=== PATIENT | female | born 2000 | race Caucasian/White ===

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

== ENCOUNTER 2019-01-05 14:26 | Outpatient (CLI) | payer OTHER ==
[~2019-01-05] VITALS: Ht 152.4 cm; Wt 121.0 kg
[2019-01-05 14:42] VITALS: Ht 152.4 cm; Wt 121.0 kg
--- NOTE | 2019-01-05 17:12 | PN ---
Triage Information Date/Time January 05, 2019 Reason for visit: Patient was sent in for antepartum testing follow-up previous blood pressure elevation Weeks of Gestation 39 weeks and 3 days /Para 1 para 0 Diabetes: none Hypertention: none Additional information Patient had several visits to [facility] for possible PIH which were finally ruled Objective Heart Rate: 140's Heart Rate Comments Reactive Contractions: None Exam Deferred Results/Medications Imaging Results Biophysical profile score = 8/8 Disposition: Discharge Assessment/Plan Patient with normal antepartum testing Will probably induce labor on EDC MABLE CHRISTENSEN MD Jan 05, 2019 17:12
--- NOTE | 2019-01-05 17:47 | TRIAGE ---
OB Triage Datetime Report Generated by CPN: 01/05/2019 17:47 Datetime: 01/05/2019 17:00 Stage of : OB Triage Maternal Assessment Level of Consciousness: Fully Conscious DTR's/Clonus: DTRs 1+ Headache: Denies Nausea/Vomiting: Denies RUQ Epigastric Pain: Denies Labor Evaluation Frequency: NONE Monitor Mode: External Resting Tone Grayson: Relaxed Heart Rate FHR Baseline Rate: 120 Monitor Mode: External US Variability: Moderate 6-25 bpm Accelerations: 15X15 Decelerations: None Category: Category I Pain Assessment Pain Scale: 0 Pain Presence: None/Denies Pain Type: N/A Pain Goal: 3 Vaginal Exam Membrane Status: Intact Datetime: 01/05/2019 16:00 Stage of : OB Triage Maternal Assessment Level of Consciousness: Fully Conscious DTR's/Clonus: DTRs 1+ Headache: Denies Nausea/Vomiting: Denies RUQ Epigastric Pain: Denies Labor Evaluation Frequency: NONE Monitor Mode: External Resting Tone Grayson: Relaxed Heart Rate FHR Baseline Rate: 120 Monitor Mode: External US Variability: Moderate 6-25 bpm Accelerations: 15X15 Decelerations: None Category: Category I Pain Assessment Pain Scale: 0 Pain Presence: None/Denies Pain Type: N/A Pain Goal: 3 Vaginal Exam Membrane Status: Intact Datetime: 01/05/2019 15:00 Stage of : OB Triage Maternal Assessment Level of Consciousness: Fully Conscious DTR's/Clonus: DTRs 1+ Headache: Denies Nausea/Vomiting: Denies RUQ Epigastric Pain: Denies Labor Evaluation Frequency: NONE Monitor Mode: External Resting Tone Grayson: Relaxed Heart Rate FHR Baseline Rate: 120 Monitor Mode: External US Variability: Moderate 6-25 bpm Accelerations: 15X15 Decelerations: None Category: Category I Pain Assessment Pain Scale: 0 Pain Presence: None/Denies Pain Type: N/A Pain Goal: 3 Vaginal Exam Membrane Status: Intact Datetime: 01/05/2019 14:50 Maternal Assessment Level of Consciousness: Fully Conscious DTR's/Clonus: DTRs 1+ Headache: Denies Blurred Vision: No Nausea/Vomiting: Denies RUQ Epigastric Pain: Denies Facial Edema: None Labor Evaluation Frequency: NONE Monitor Mode: External Resting Tone Grayson: Relaxed Heart Rate FHR Baseline Rate: 120 Monitor Mode: External US Variability: Moderate 6-25 bpm Accelerations: 15X15 Decelerations: None Category: Category I Pain Assessment Pain Scale: 0 Pain Presence: None/Denies Pain Type: N/A Pain Goal: 3 Vaginal Exam Membrane Status: Intact Datetime: 01/05/2019 14:22 Time of Arrival: 01/05/2019 14:22 EGA: 39.3 Arrived By: Ambulatory Arrived From: Office Chief Complaint: PT CAME IN [facility] FOR NST AND BPP Movement: Present Contractions: Denies/Absent Rupture of Membranes: Denies Vaginal Discharge: Denies Recent Sexual Intercouse: Denies Abdominal Trauma: Not Applicable Additional Patient Complaints: NONE Time Provider Notified: 01/05/2019 14:30 Provider Notified: PARMINDER Initial Plan: NST AND BPP Datetime: 12/22/2018 15:00 Stage of : OB Triage Maternal Assessment Level of Consciousness: Fully Conscious Labor Evaluation Frequency: 0 Monitor Mode: External Resting Tone Grayson: Relaxed Heart Rate FHR Baseline Rate: 125 Monitor Mode: External US Variability: Moderate 6-25 bpm Accelerations: 15X15 Decelerations: None Category: Category I Pain Assessment Pain Scale: 0 Pain Goal: 3 Vaginal Exam Membrane Status: Intact Vaginal Bleeding: None Datetime: 12/22/2018 14:00 Stage of : OB Triage Maternal Assessment Level of Consciousness: Fully Conscious Labor Evaluation Frequency: 0 Monitor Mode: External Resting Tone Grayson: Relaxed Heart Rate FHR Baseline Rate: 135 Monitor Mode: External US Variability: Moderate 6-25 bpm Accelerations: 15X15 Decelerations: None Category: Category I Pain Assessment Pain Scale: 0 Pain Goal: 3 Vaginal Exam Membrane Status: Intact Vaginal Bleeding: None Datetime: 12/22/2018 13:12 Assessment Type: Triage Maternal Assessment Level of Consciousness: Fully Conscious DTR's/Clonus: DTRs 2+; No Clonus Headache: Denies Blurred Vision: No Respiratory Effort: Unlabored; Regular Rhythm; Equal Expansion Breath Sounds, Left: Clear and Equal Breath Sounds, Right: Clear and Equal Nausea/Vomiting: Denies RUQ Epigastric Pain: Denies Lower Extremities Edema: Bilateral Lower Extremities Degree: 1+ Upper Extremities Edema: Bilateral Upper Extremities Degree: 1+ Facial Edema: None Fall Risk Assessment History of Falling: (0) No Secondary Diagnosis: (0) No Ambulatory Aid: (0) Bedrest/Nurse Assist IV Therapy: (0) No Gait: (0) Normal/Bedrest/Immobile Mental Status: (0) Oriented to Own Ability Fall Score: 0 Fall Risk Score Definition: No Risk: No action required Datetime: 12/22/2018 13:10 Time of Arrival: 12/22/2018 12:37 EGA: 37.3 Arrived By: Ambulatory Arrived From: Dr. Gomez Chief Complaint: PT. SENT FROM CLINIC FOR EVAL OF HBP Movement: Present Contractions: Denies/Absent Rupture of Membranes: Denies Vaginal Bleeding: None Vaginal Discharge: Denies Recent Sexual Intercouse: Denies Abdominal Trauma: Not Applicable Patient Complaints: None Time Provider Notified: 12/22/2018 12:45 Provider Notified: PARMINDER Initial Plan: PIH PANEL/ BPP/EFM Datetime: 12/22/2018 13:06 Monitor Mode: External Monitor Mode: External US Datetime: 12/15/2018 12:24 Fall Score: 0 Fall Risk Score Definition: No Risk: No action required Datetime: 12/15/2018 12:22 EGA: 36.3 Datetime: 12/08/2018 18:04 Fall Score: 0 Fall Risk Score Definition: No Risk: No action required Datetime: 12/08/2018 18:03 EGA: 35.3
== END 2019-01-05 17:44 | disposition home or self-care (01) ==
LOC: L-D 14:26 → OBT 14:26
PROVIDERS: ATTEND Obstetrics & Gynecology
DX: O13.3 Gestational [pregnancy-induced] hypertension without significant proteinuria, third trimester (principal); Z3A.39 39 weeks gestation of pregnancy
CPT/HCPCS: 76818; Z7500; G0463

== ENCOUNTER 2019-01-08 08:47 | Inpatient (IN) | payer OTHER ==
[~2019-01-08] VITALS: Ht 152.4 cm; Wt 125.0 kg
[2019-01-08 08:51] VITALS: Ht 152.4 cm; Wt 125.0 kg
--- NOTE | 2019-01-08 09:06 | TRIAGE ---
OB Triage Datetime Report Generated by CPN: 01/08/2019 09:06 Datetime: 01/08/2019 08:54 Vaginal Exam Dilatation (cms): 2.0 Effacement (%): 80 Station: -2 Exam By: YULI CHRISTENSEN Membrane Status: Ruptured Vaginal Bleeding: None Cervix, Consistency: Soft Cervix, Position: Midposition Presentation 'A': Cephalic Datetime: 01/08/2019 08:48 Assessment Type: Triage Maternal Assessment Level of Consciousness: Fully Conscious DTR's/Clonus: DTRs 2+; No Clonus Headache: Denies Blurred Vision: No Respiratory Effort: Unlabored; Regular Rhythm; Equal Expansion Breath Sounds, Left: Clear and Equal Breath Sounds, Right: Clear and Equal Nausea/Vomiting: Denies RUQ Epigastric Pain: Denies Lower Extremities Edema: None Degree: None Upper Extremities Edema: None Degree: None Facial Edema: None Fall Risk Assessment History of Falling: (0) No Secondary Diagnosis: (0) No Ambulatory Aid: (0) Bedrest/Nurse Assist IV Therapy: (0) No Gait: (0) Normal/Bedrest/Immobile Mental Status: (0) Oriented to Own Ability Fall Score: 0 Fall Risk Score Definition: No Risk: No action required Datetime: 01/08/2019 08:47 Time of Arrival: 01/08/2019 08:47 EGA: 39.6 Arrived By: Ambulatory Arrived From: Home Chief Complaint: PT CAME IN C/O SROM SINCE Movement: Present Contractions: Regular Rupture of Membranes: Unsure Vaginal Discharge: Denies Recent Sexual Intercouse: Denies Abdominal Trauma: Not Applicable Additional Patient Complaints: NONE Time Provider Notified: 01/08/2019 08:48 Provider Notified: PARMINDER Initial Plan: MONITOR AND VE Datetime: 01/05/2019 14:22 EGA: 39.3 Datetime: 12/22/2018 13:12 Fall Score: 0 Fall Risk Score Definition: No Risk: No action required Datetime: 12/22/2018 13:10 EGA: 37.3 Datetime: 12/15/2018 12:24 Fall Score: 0 Fall Risk Score Definition: No Risk: No action required Datetime: 12/15/2018 12:22 EGA: 36.3 Datetime: 12/08/2018 18:04 Fall Score: 0 Fall Risk Score Definition: No Risk: No action required Datetime: 12/08/2018 18:03 EGA: 35.3
[2019-01-08] MEDS ORDERED: METHYLERGONOVINE 0.2 MG INJ IM PRN (09:30)
[2019-01-08] MEDS ORDERED: BUTORPHANOL 2 MG INJ IV PRN (09:30)
[2019-01-08] MEDS ORDERED: MISOPROSTOL 200 MCG TAB PR PRN (09:30)
[2019-01-08] MEDS ORDERED: LIDOCAINE 1% (MPF) 30 ML INJ INJ PRN (09:30)
[2019-01-08] MEDS ORDERED: OXYTOCIN 30 UNITS/LR 500 ML IV SCH ×2 (09:30)
[2019-01-08] MEDS ORDERED: OXYTOCIN 30 UNITS/LR 500 ML IV PRN (09:30)
[2019-01-08] MEDS ORDERED: OXYCODONE/ASPIRIN (4.88/325) TAB PO PRN (09:30)
[2019-01-08] MEDS ORDERED: CARBOPROST 250 MCG INJ IM PRN (09:30)
[2019-01-08] MEDS: LACTATED RINGER'S 1,000 ML IV SCH ×4 (09:45→20:25)
[2019-01-08] MEDS: OXYTOCIN 30 UNITS/LR 500 ML IV SCH ×2 (10:28→21:56)
--- NOTE | 2019-01-08 13:11 | HP ---
Date/Time of Note Date/Time of Note DATE: 01/08/19 TIME: 13:04 OB - History Hx of Present Free Text/Dictation 18 y/o female P0 at term gestation admitted C/O SROM at 0800 AM 01/08/2019 Last Menstrual Period: March 24, 2018 Estimated Due Date: Jan 09, 2019 : 1 Para: 0 Care: Good Care Ultrasounds: Normal mid trimester US Obstetrical Complications: None, Other (marginal cord insersion) Medical Complications: None Past Family/Social History * Past Medical, Surgical, Family and Obstetric Histories reviewed from chart. Blood Type: O+ Rubella: immune RPR/VDRL: Negative GBS Status: Negative HBsAG: Negative OB Admission Exam Physical Exam HEENT: WNL Heart: Rhythm Normal Lungs: Clear, Equal Abdomen: WNL Extremities: Normal Reflexes: Normal Cervical Dilatation: 2cm Effacement: 50% Station: -2 Membranes: Ruptured Amniotic Fluid: Clear Heart Rate: 140's Accelerations: Accelerations Present Decelerations: No Decelerations Varibility: Moderate Contractions on Admission: 6-10 Minutes Apart Date/Time Contractions Began: 08:30 01/09/2019 Frequency of Contractions: every 10 min Duration: >60 seconds Intensity: Mild Last 72 hours Lab Results CBC & BMP 01/08/19 09:10 OB Assessment/Plan Reason for admission: rupture of membranes (confirmed with ROM plus test) Other Assessment: term gestation Other plan: Proceed with Pitocin augmentation of the labor MABLE CHRISTENSEN MD Jan 08, 2019 13:11
[2019-01-08] MEDS ORDERED: FENTAnyl 2MCG/ML-ROPIV 0.2% 100 ML ONE (17:32)
--- NOTE | 2019-01-08 17:42 | PREAC ---
Date/Time of Note Date/Time of Note DATE: 01/08/19 TIME: 17:40 Anesthesia Eval and Record Evaluation Time Pre-Procedure Interview DATE: 01/08/19 TIME: 16:59 Age 18 Sex female NPO: 8 hrs Preoperative diagnosis iup @ 39 wks., , labor Planned procedure eloisa Past Medical History Past Medical History: Includes : : (1), Para: (0), Gestational age: (39 wks.) Surgery & Anesthesia Issues No known issue Meds Anticoagulation: No Beta Brock within 24 hr: No Reason Beta Brock not given: Pt. not on B-Brock Reported Medications Calcium Acetate* (Calcium Acetate*) 667 Mg Capsule, 667 MG PO WITH MEALS, #30 CAP 12/15/18 [id number] ( 19) 1 Each Tablet, 1 TAB PO DAILY, TAB 12/08/18 Current Medications Lactated Ringer's 1,000 ml @ 125 mls/hr Q8H IV Last administered on 01/08/19at 16:17; Admin Dose 125 MLS/HR; Start 01/08/19 at 09:06 Butorphanol Tartrate (Stadol) 2 mg Q2H PRN IV .PAIN; Start 01/08/19 at 09:30 Lidocaine (Xylocaine 1% (Mpf)) 30 ml ONCE PRN INJ .EPISIOTOMY; Start 01/08/19 at 09:30 Oxytocin/Lactated Ringer's 500 ml @ 500 mls/hr ONCE POST IV ; Start 01/08/19 at 09:30 Oxytocin/Lactated Ringer's 500 ml @ 125 mls/hr POST IV ; Start 01/08/19 at 09:30 Oxycodone/Aspirin (Percodan) 2 tab ONCE PRN PO .PAIN 6-10; Start 01/08/19 at 0 9:30 Oxytocin/Lactated Ringer's 500 ml @ 0 mls/hr ONCE PRN IV .VAGINAL BLEEDING; Start 01/08/19 at 09:30 Methylergonovine Maleate (Methergine) 0.2 mg ONCE PRN IM .VAGINAL BLEEDING; Start 01/08/19 at 09:30 Carboprost Tromethamine (Hemabate) 250 mcg ONCE PRN IM .VAGINAL BLEEDING; Start 01/08/19 at 09:30 Misoprostol (Cytotec) 1,000 mcg ONCE PRN MS .VAGINAL BLEEDING; Start 01/08/19 at 09:30 Oxytocin/Lactated Ringer's 500 ml @ 0 mls/hr FOR AUGMENTATION IV Last administered on 01/08/19at 10:28; Admin Dose 1 MLS/HR; Start 01/08/19 at 09:30 Meds reviewed: Yes Allergies Coded Allergies: No Known Allergy (Unverified , 01/05/19) Allergies Reviewed: Yes Labs/Studies Labs Reviewed: Reviewed by anesthesiologist Result Diagram: 01/08/19 0910 Laboratory Tests 01/08/19 09:10 Blood Bank Test 01/08/19 09:10 Antibody Screen NEGATIVE Blood Type O POSITIVE Rh Immune Globulin Candidate NO test: Positive Studies: ECG (n/a), CXR (n/a) Pre-procedure Exam Airway: Adequate mouth opening, Adequate thyromental dist Mallampati: Mallampati II Teeth: Normal Lung: Normal Heart: Normal ASA Physical Status ASA physical status: 2 Emergency: E Planned Anesthetic Neuraxial: Epidural Planned Pain Management Epidural, Local by surgeon Pre-operative Attestations Prior to commencing anesthesia and surgery, the patient was re-evaluated, there was verification of: *The patient's identity *The results of appropriate recent lab work and preoperative vital signs *The above evaluation not changing prior to induction *Anesthetic plan, risk benefits, alternative and complications discussed with patient/family; questions answered; patient/family understands, accepts and wishes to proceed. [employer] used SHMUEL ADAIR MD Jan 08, 2019 17:42
--- NOTE | 2019-01-08 17:43 | PAC ---
Date/Time of Note Date/Time of Note DATE: 01/09/19 TIME: 15:00 Post-Anesthesia Notes Post-Anesthesia Note Activity: WNL Respiratory function: WNL Cardiovascular function: WNL Mental status: Baseline Pain reasonably controlled: Yes Hydration appropriate: Yes Nausea/Vomiting absent: Yes SHMUEL ADAIR MD Jan 08, 2019 17:43
[2019-01-08] MEDS ORDERED: NALOXONE (0.4 MG/ML) INJ IV PRN (18:00)
[2019-01-08] MEDS: FENTAnyl 2MCG/ML-ROPIV 0.2% 100 ML BAG EPI SCH (20:10)
--- NOTE | 2019-01-08 20:21 | NSTRPT ---
NST Information Datetime Report Generated by CPN: 01/08/2019 20:20 Datetime: 01/03/2019 14:08 NST Information EGA: 39.1 Test Number: 11 Time on Monitor: 01/03/2019 14:53 Time off Monitor: 01/03/2019 15:25 NST Duration (Min): 32 Reason for NST: Other Reason for NST Other: Marginal Cord Insertion, Post Dates Test and Monitor Explained: Monitor Explained; Test Explained; Verbalized Understanding Pulse: 73 Resp: 18 SBP: 122 DBP: 77 Test Evaluation NST Interventions: None Patient States Movement: Present Contraction Frequency: none FHR Baseline : 115 Variability: Moderate 6-25bpm Accelerations: 15X15 Decelerations: None FHR Category: Category I NST Results: Reactive Comments: To u/s RACHEL 12.1 CM CEPHALIC Electronically Signed By E-Signature: with User ID: [id number] Datetime: 12/23/2018 09:31 NST Information EGA: 37.4 NST Duration (Min): 31 Datetime: 12/20/2018 09:13 NST Information EGA: 37.1 NST Duration (Min): 24 Datetime: 12/16/2018 09:42 NST Information EGA: 36.4 NST Duration (Min): 22 Datetime: 12/13/2018 09:24 NST Information EGA: 36.1 NST Duration (Min): 21 Datetime: 12/09/2018 09:08 NST Information EGA: 35.4 NST Duration (Min): 21 Datetime: 12/06/2018 09:52 NST Information EGA: 35.1 NST Duration (Min): 41 Datetime: 12/02/2018 11:13 NST Information EGA: 34.4 NST Duration (Min): 35 Datetime: 11/28/2018 08:24 NST Information EGA: 34.0 NST Duration (Min): 66 Datetime: 11/25/2018 08:00 NST Information EGA: 33.4 NST Duration (Min): 24 Datetime: 11/22/2018 08:43 NST Information EGA: 33.1 NST Duration (Min): 39
[2019-01-08] MEDS ORDERED: AMPICILLIN 2 GM/NS (PMX) 100 ML IV ONE (21:00)
[2019-01-08] MEDS ORDERED: MINERAL OIL LIGHT 10 ML VIAL TOP PRN (21:00)
[2019-01-09] MEDS: FENTAnyl 2MCG/ML-ROPIV 0.2% 100 ML BAG EPI SCH (00:07)
[2019-01-09] MEDS ORDERED: AMPICILLIN 1 GM/NS (PMX) 50 ML IV SCH (01:00)
--- NOTE | 2019-01-09 03:20 | LDN ---
Date/Time of Note Date/Time of Note DATE: 01/09/19 TIME: 03:15 Delivery Summary of normal male velamentous cord insertion Weeks of Gestation 40w Placenta Delivered: Spontaneously, Intact & Complete Meconium: none Episiotomy: No Perineal laceration: 0 Anesthesia type: Epidural Estimated blood loss: 100 Sponge & Needle done & correct: Yes All needle counts correct: Yes Any foreign bodies felt in the: No Infant Delivery Information Sex Infant Sex: male Apgars 1 Minute: 9 5 Minute: 9 Suctioning Nose & mouth suctioned at mey: Yes Delee suction performed: Yes Umbilical Cord Umbilical cord with: 3 Vessels Cord presentations: no nuchal cord Cord Blood was obtained: Yes Mother & Baby Disposition Disposition Mom & Baby to Maternity; Good: Yes Mom transferred to: Other Baby to NICU: No () NAVEEN ALONZO MD Jan 09, 2019 03:20
[2019-01-09] MEDS ORDERED: OXYCODONE/ASPIRIN (4.88/325) TAB PO PRN ×2 (05:00)
[2019-01-09] MEDS ORDERED: BENZOCAINE 20% 56 ML SPRAY TOP PRN (05:00)
[2019-01-09] MEDS ORDERED: OXYTOCIN 30 UNITS/LR 500 ML IV PRN (05:00)
[2019-01-09] MEDS ORDERED: WITCH HAZEL/GLYCERIN PAD PR PRN (05:00)
[2019-01-09] MEDS ORDERED: CARBOPROST 250 MCG INJ IM PRN (05:00)
[2019-01-09] MEDS ORDERED: ZOLPIDEM 5 MG TAB PO PRN (05:00)
[2019-01-09] MEDS ORDERED: LANOLIN HPA 1 PKT TOP PRN (05:00)
[2019-01-09] MEDS ORDERED: MISOPROSTOL 200 MCG TAB PR PRN (05:00)
[2019-01-09] MEDS ORDERED: METHYLERGONOVINE 0.2 MG INJ IM PRN (05:00)
[2019-01-09] MEDS: IBUPROFEN 600 MG TAB PO SCH ×3 (05:57→17:42)
[2019-01-09] MEDS: LACTATED RINGER'S 1,000 ML IV SCH ×2 (08:00→16:00)
[2019-01-09 09:14] VITALS: BP 119/69; PULSE 64; RESP 18
[2019-01-09] MEDS: SENNA/DOCUSATE NA (8.6MG/50MG) TAB PO SCH ×2 (10:01→21:08)
[2019-01-09 12:00] VITALS: BP 110/69; PULSE 66; RESP 18
[2019-01-09] MEDS: CEPHALEXIN 500 MG CAP PO SCH ×2 (14:34→17:56)
[2019-01-09 16:00] VITALS: BP 132/61; PULSE 84; RESP 18
[2019-01-09 19:50] VITALS: BP 126/67; PULSE 73; RESP 18
[2019-01-10] VITALS: BP 112/77; PULSE 74; RESP 16
[2019-01-10] MEDS: CEPHALEXIN 500 MG CAP PO SCH ×5 (00:23→23:58)
[2019-01-10] MEDS: IBUPROFEN 600 MG TAB PO SCH ×5 (00:23→23:58)
[2019-01-10 04:10] VITALS: BP 99/53; PULSE 63; RESP 16
[2019-01-10 08:00] VITALS: BP 98/54; PULSE 64; RESP 18
[2019-01-10] MEDS: SENNA/DOCUSATE NA (8.6MG/50MG) TAB PO SCH ×2 (09:00→22:27)
[2019-01-10 16:00] VITALS: BP 110/60; PULSE 70; RESP 18
--- NOTE | 2019-01-10 16:56 | DS ---
Date/Time of Note Date/Time of Note Home today or next day DATE: 01/10/19 TIME: 16:55 Obstetrical Discharge Record Final Diagnosis Final Diagnosis: Term delivered Other Final Diagnosis Status post vaginal delivery Vaginal Delivery Obstetrical Delivery: Spontaneous Complications Augmentation: Yes Induction: Yes Condition on Discharge Physical Assessment Last Vitals: See nurse's note Voiding: Yes Bowel Movement: Yes Breast: Soft, non-tender, Filling Fundus: Firm Abdomen and Incision: Abdomen is soft with firm fundus Episiotomy: Perineum is clean Calf Tenderness: No Patient Condition: Good MABLE CHRISTENSEN MD Jan 10, 2019 16:56
--- NOTE | 2019-01-10 16:57 | PD.PPDC ---
CLINICAL LABORATORY AIDE Discharge Instruction Provider Information Physician Information 18-year-old female had vaginal delivery Diagnosis [id number] Final Diagnosis: [id number] Status post vaginal delivery Condition [id number] Patient Condition: [id number] Good Diet [id number] Diet: Qrgyo2m Resume Regular Diet Activity/Restrictions [id number] Activity: [id number] Normal Activity May Shower [id number] Restrictions: Aqtrm2n Nothing in the Vagina [id number] Return to Work or School: [id number] Feb 27, 2019 Follow-up Follow-up with Physician: 2, 4, Week/Weeks (In clinic) Return to clinic for [id number] OB Instructions: [id number] Breast Tenderness Depression Comment: Pelvic rest for 6 weeks MABLE CHRISTENSEN MD Jan 10, 2019 16:57
[2019-01-10] MEDS ORDERED: IBUP-1542 PO (16:58)
[2019-01-10] MEDS: LACTATED RINGER'S 1,000 ML IV SCH ×3 (19:45→19:46)
[2019-01-10 19:50] VITALS: BP 138/84; PULSE 77; RESP 18
[2019-01-11] MEDS: LACTATED RINGER'S 1,000 ML IV SCH
[2019-01-11 04:30] VITALS: BP 128/63; PULSE 73; RESP 18
[2019-01-11] MEDS: CEPHALEXIN 500 MG CAP PO SCH ×2 (05:36→11:11)
[2019-01-11] MEDS: IBUPROFEN 600 MG TAB PO SCH ×2 (05:36→11:11)
[2019-01-11 08:00] VITALS: BP 126/80; PULSE 63; RESP 18
[2019-01-11] MEDS ORDERED: DIPHTH/TET/ACEL PERTUSS (ADULT) 0.5 ML VIAL IM* ONE (09:00)
[2019-01-11] MEDS: SENNA/DOCUSATE NA (8.6MG/50MG) TAB PO SCH (09:47)
[2019-01-12] MEDS ORDERED: INFLUENZA VIRUS VACCINE 0.5 ML (DISPENSING) IM* ONE (10:00)
== END 2019-01-11 13:55 | disposition home or self-care (01) | DRG 807 ==
LOC: OBT 08:47 → L-D 08:48 → OBT 09:00 → L-D 09:14 → PP1 01-09 05:38
PROVIDERS: ADMIT Obstetrics & Gynecology; ATTEND Obstetrics & Gynecology
PROC: 10E0XZZ Delivery of Products of Conception, External Approach (ICD-10-PCS; principal; 2019-01-09)
DX: O43.123 Velamentous insertion of umbilical cord, third trimester (principal); Z37.0 Single live birth; Z3A.40 40 weeks gestation of pregnancy
CPT/HCPCS: 62319; 76815; 76818; 81003; 84112; 85025; 85610; 85730; 86592; 86850; 86900; 86901; 87086; 87340; 99464; G0463; J0290; J2590; J3010; J7120

== ENCOUNTER 2019-02-01 00:10 | Emergency (ER) | payer OTHER ==
[~2019-02-01] VITALS: Ht 152.4 cm; Wt 114.3 kg
[~2019-02-01 00:10] MED LIST changes: +IBUP-1542 PO
[2019-02-01 00:20] VITALS: Ht 152.4 cm; Wt 114.3 kg
--- NOTE | 2019-02-01 02:42 | ERD ---
ER Documentation Chief Complaint Chief Complaint BACK AND CHEST HURT WHEN BREAST FEEDING HPI 18-year-old female, previously healthy, presents to the emergency department, complaining of burning epigastric pain for 3 days, the pain is worse while the patient is breast-feeding. She denies nausea, no vomiting, no fever, no chills ROS All systems reviewed and are negative except as per history of present illness. Medications Home Meds Active Scripts Cephalexin* (Keflex*) 500 Mg Capsule, 500 MG PO QID for 5 Days, #20 CAP Prov:OBI PARKER MD 02/01/19 Ranitidine Hcl* (Zantac*) 150 Mg Tablet, 150 MG PO BID PRN for EPIGASTRIC PAIN for 5 Days, #10 TAB Prov:OBI PARKER MD 02/01/19 Ibuprofen* (Ibuprofen*) 600 Mg Tablet, 600 MG PO Q6, #60 TAB 0 Refills Prov:MABLE CHRISTENSEN MD 01/10/19 Reported Medications Calcium Acetate* (Calcium Acetate*) 667 Mg Capsule, 667 MG PO WITH MEALS, #30 CAP 12/15/18 [id number] ( 19) 1 Each Tablet, 1 TAB PO DAILY, TAB 12/08/18 Allergies Allergies: Coded Allergies: No Known Allergy (Unverified , 01/08/19) PMhx/Soc Medical and Surgical Hx: pt denies Medical Hx, pt denies Surgical Hx Hx Alcohol Use: No Hx Substance Use: No Hx Tobacco Use: No Smoking Status: Never smoker FmHx Family History: No diabetes, No coronary disease Physical Exam Vitals Vital Signs Date Temp Pulse Resp B/P (MAP) Pulse Ox O2 O2 Flow FiO2 Time Delivery Rate 02/01/19 98.2 79 18 126/59 99 Room Air 03:52 (81) 02/01/19 99.2 83 16 136/67 99 00:20 (90) Physical Exam Const: No acute distress Head: Atraumatic Eyes: Normal Conjunctiva ENT: Normal External Ears, Nose and Mouth. Neck: Full range of motion. No meningismus. Resp: Clear to auscultation bilaterally Cardio: Regular rate and rhythm, no murmurs Abd: Soft, non tender, non distended. Normal bowel sounds Skin: No petechiae or rashes Back: No midline or flank tenderness Ext: No cyanosis, or edema Neur: Awake and alert Psych: Normal Mood and Affect Results 24 hrs Laboratory Tests Test 02/01/19 03:07 Bedside Urine pH (LAB) 6.0 Bedside Urine Protein (LAB) Trace Bedside Urine Glucose (UA) Negative Bedside Urine Ketones (LAB) Negative Bedside Urine Blood Trace-intact Bedside Urine Nitrite (LAB) Negative Bedside Urine Leukocyte Esterase (L 2+ Procedures/MDM Vital signs stable. Differential diagnosis include but not limited to: Gastritis, gastroenteritis, cholelithiasis, cholecystitis, kidney stones, irritable bowel syndrome, inflammatory bowel syndrome, malabsorption syndrome, food intolerance, medication side effect, pancreatitis, diverticulitis, bowel obstruction. Physical examination and clinical presentation consistent most likely with acute gastritis, Low suspicion for acute abdomen, incidentally, the patient was found to have acute cystitis. During the ED course the patient remained stable, no new complaints. Results and clinical impression discussed with the patient who agrees with management. The patient is stable to be treated outpatient and will be di scharged home; some side effects of prescribed medications (headache, rash, nausea, vomiting, diarrhea, drowsiness, habituation, bleeding, hypertension, interactions with other medications) were reviewed. Follow up with the primary care provider in the next 48h is recommended. If symptoms persist, worsen or new symptoms develop, then patient should return to the ED immediately. Instructions explained and given directly by me to the patient with acknowledgment and demonstrated understanding. Disclaimer: Inadvertent spelling and grammatical errors are likely due to EHR/dictation software use and do not reflect on the overall quality of patient care. Also, please note that the electronic time recorded on this note does not necessarily reflect the actual time of the patient encounter. Departure Diagnosis: Primary Impression: GERD (gastroesophageal reflux disease) Additional Impression: Acute cystitis Condition: Stable Additional Instructions: Thank you very much for allowing us to participate in your care. Your health and safety is our top priority at [facility]. Call your primary care doctor TOMORROW for an appointment during the next 2-4 days and bring all the information and medications prescribed. Have prescriptions filled and follow precisely the directions on the label. If the symptoms get worse and your provider is unavailable, return to the Emergency Department immediately. OBI PARKER MD Feb 01, 2019 02:42
[2019-02-01] MEDS ORDERED: RANI150T35 PO (03:15)
[2019-02-01] MEDS ORDERED: CEPH-443 PO (03:15)
[2019-02-01 03:52] VITALS: BP 126/59; PULSE 79; RESP 18
== END 2019-02-01 03:54 | disposition home or self-care (01) ==
LOC: FTE 00:10
DX: K21.9 Gastro-esophageal reflux disease without esophagitis (principal); N30.00 Acute cystitis without hematuria
CPT/HCPCS: 81003; Z7502; 99283